=== PATIENT | female | born 1965 | race Hispanic/Latino ===

== ENCOUNTER 2022-05-05 20:36 | Emergency (ER) | payer SELFPAY ==
[~2022-05-05] VITALS: Ht 165.1 cm; Wt 85.7 kg
[2022-05-05] MEDS ORDERED: ERYTHROMYCIN (OPTH) 3.5 GM OINT OP ONE ×2 (22:45→22:51)
== END 2022-05-05 22:56 | disposition home or self-care (01) ==
LOC: FSED 20:51
DX: H11.32 Conjunctival hemorrhage, left eye (principal)
CPT/HCPCS: 99282